=== PATIENT | female | born 1980 | race Caucasian/White ===

== ENCOUNTER 2018-08-06 15:19 | Emergency (ER) | payer OTHER ==
[~2018-08-06] VITALS: Ht 182.9 cm; Wt 68.0 kg
[2018-08-06 15:22] VITALS: BP 124/65
== END 2018-08-06 16:29 | disposition left against medical advice (07) ==
LOC: M.ERS 15:19
DX: Z53.21 Procedure and treatment not carried out due to patient leaving prior to being seen by health care provider (principal)